=== PATIENT | female | born 1950 | race Caucasian/White ===

== ENCOUNTER 2024-02-09 17:02 | Emergency (ER) | payer OTHER, SELFPAY ==
[2024-02-09 17:12] VITALS: BP 150/84; PULSE 100; RESP 18; TEMP 36.3; O2SAT 95; BMI 31.6
--- NOTE | 2024-02-09 17:46 | ED.GENADULT ---
HPI - General Adult General Chief complaint: Shortness of Breath/Dyspnea Stated complaint: cough Time Seen by Provider: 02/09/24 17:05 History of Present Illness HPI narrative: This 73-year-old female is visiting from [place] for her 50th anniversary of graduating from college. She developed a cough that is worsened over the past week. She states that she has mostly nonproductive cough but at times it is very vigorous with associated shortness of breath. She does report some wheezing. She has not had any fevers. She did test at home for COVID with negative results. Related Data Home Medications ?Medication ?Instructions ?Recorded ?Confirmed atorvastatin 10 mg tablet 10 mg PO DAILY 02/09/24 02/09/24 biotin .ROUTE 02/09/24 colestipol .ROUTE 02/09/24 lisinopril 30 mg tablet 30 mg PO DAILY 02/09/24 02/09/24 Allergies Allergy/AdvReac Type Severity Reaction Status Date / Time Penicillins Allergy Mild Rash Verified 02/09/24 17:17 dermabond Allergy Severe Swelling Uncoded 02/09/24 17:17 Review of Systems Status of ROS: Reports: 10 or more systems reviewed and unremarkable except as noted in History and below Narrative: Constitutional: No fevers, no weight gain or loss. Eyes: No discharge. No vision changes. HENT: No congestion, no sore throat, no ear pain. Cardiovascular: No chest pain, no palpitations. Respiratory: She reports cough with wheezing. Gastrointestinal: No abdominal pain, no vomiting, no diarrhea. Genitourinary: No dysuria, no hematuria. Musculoskeletal: Normal range of motion. Skin: No rashes, no pruritis. Neurological: No dizziness, weakness, sensory change, speech change. Endo/Heme/Allergies: No bruising or bleeding. No polydipsia. Pysch: no suicidality, no anxiety, no insomnia. All other systems reviewed and are negative. PFSH PFSH Social History Smoking Status: Former smoker Do you use any of these nicotine containing products: None Second hand tobacco smoke exposure: No How often do you have a drink containing alcohol: 2-3 times a week How many standard drinks containing alcohol do you have on a typical day: 1 or 2 AUDIT-C Alcohol total score: 3 Non-prescribed substance use: denies use Exam Narrative: Exam Narrative: Constitutional: Well-developed, well-nourished, no acute distress. HEENT: Normocephalic, atraumatic. Neck: Normal range of motion. Nontender. Supple. Heart: Regular. No murmurs. Normal rate. Intact distal pulses. Lungs: Bilateral expiratory wheezes. No use of accessory muscles for breathing. Oximetry at 95% on room air. Abdomen: Normal bowel sounds. Nontender. No rebound tenderness. Genitalia: Deferred. Back: No midline tenderness. Normal range of motion. Extremities: Normal range of motion. No injury. Skin: Intact. No rash. Warm. No erythema or pallor. Neurologic: No altered sensation. No weakness. Alert and oriented. Psychiatric: No suicidality. No anxiety or depression. No insomnia. Nursing notes and vitals signs are reviewed. Const: Vital Signs, click to edit/add: Vital Signs - 24 hr 02/09/24 17:12 Temperature 97.4 F L Pulse Rate [Pulse Oximeter] 100 Respiratory Rate 18 Blood Pressure [facility] 150/84 H Pulse Oximetry 95 Oxygen Delivery Me thod Room Air Course Vital Signs Vital signs: Initial Vital Signs Temperature 97.4 F L 02/09/24 17:12 Temperature Source Temporal Artery Scan 02/09/24 17:12 Pulse Rate 100 02/09/24 17:12 Respiratory Rate 18 02/09/24 17:12 Blood Pressure 150/84 H 02/09/24 17:12 Blood Pressure Mean 106 H 02/09/24 17:12 Blood Pressure Position Sitting 02/09/24 17:12 Pulse Oximetry 95 02/09/24 17:12 Oxygen Delivery Method Room Air 02/09/24 17:12 Vital Signs Temperature 97.4 F L 02/09/24 17:12 Pulse Rate 100 02/09/24 17:12 Respiratory Rate 18 02/09/24 17:12 Blood Pressure 150/84 H 02/09/24 17:12 Pulse Oximetry 95 02/09/24 17:12 Oxygen Delivery Method Room Air 02/09/24 17:12 Temperature 97.4 F L 02/09/24 17:12 Pulse Rate 100 02/09/24 17:12 Respiratory Rate 18 02/09/24 17:12 Blood Pressure 150/84 H 02/09/24 17:12 Pulse Oximetry 95 02/09/24 17:12 Oxygen Delivery Method Room Air 02/09/24 17:12 Medical Decision Making MDM Narrative Medical decision making narrative: This patient comes in with upper respiratory symptoms which are likely due to a virus. I did offer lab and imaging studies which the patient declined in a process of shared decision making. She did receive an oral dose of dexamethasone 10 mg and I provided prescriptions for tramadol and Medrol Dosepak for symptomatic relief. Discharge Plan Discharge Clinical Impression: Acute upper respiratory infection Patient Disposition: Home, Self-Care Condition: Stable Additional Instructions: Take medication as prescribed and needed. Follow up with MD or return if worsening. Prescriptions: No Action lisinopril 30 mg tablet 30 mg PO DAILY atorvastatin 10 mg tablet 10 mg PO DAILY colestipol .ROUTE biotin .ROUTE Stand Alone Forms: [employer] Info Instructions
[2024-02-09] MEDS: dexAMETHasone 10 MG/ML inj PO (17:58)
== END 2024-02-09 18:00 | disposition home or self-care (01) ==
LOC: ED 17:58
PROVIDERS: Emergency Provider Emergency Medicine Emergency Medical Services
DX: J06.9 Acute upper respiratory infection, unspecified (principal)
CPT/HCPCS: 99283; 99284; J1100